=== PATIENT | male | born 1980 ===

== ENCOUNTER 2024-02-23 12:16 | Emergency (ER) | payer MEDICAID ==
[2024-02-23 13:01] LABS: BASOPHILS PERCENT AUTO 0.7 % (0.0-1.0); EOSINOPHILS PERCENT AUTO 0.7 % (1.0-3.0); HEMATOCRIT 43.4 % (40.0-54.0); HEMOGLOBIN 15.4 g/dL (14.0-18.0); LYMPHOCYTES PERCENT AUTO 23.9 % (20.5-50.1); MEAN CORPUSCULAR HEMOGLOBIN 28.9 pg (27.0-34.0); MEAN CORPUSCULAR HGB CONC 35.5 g/dL (33.0-35.0); MEAN CORPUSCULAR VOLUME 81.6 fL (80-100); MONOCYTES PERCENT AUTO 6.5 % (2-8); NEUTROPHILS PERCENT AUTO 68.2 % (42.2-75.2); PLATELET COUNT,PLT 137 10^3/uL (150-450); RED BLOOD CELL COUNT 5.32 10^6/uL (4.6-6.2); WHITE BLOOD CELL COUNT,WBC 4.2 10^3/uL (5.0-10.0)
[2024-02-23 13:02] LABS: APPEARANCE,URINE CLEAR (CLEAR); BILIRUBIN,URINE NEGATIVE (NEGATIVE); COLOR,URINE YELLOW (YELLOW); GLUCOSE,URINE 500 (NEGATIVE); KETONES,URINE 15 (NEGATIVE); LEUKOCYTE ESTERASE,URINE NEGATIVE (NEGATIVE); NITRITE,URINE NEGATIVE (NEGATIVE); OCCULT BLOOD,URINE TRACE-INTACT (NEGATIVE); PH,URINE 6.5 (5.0-9.0); PROTEIN,URINE 100 (NEGATIVE); UROBILINOGEN,URINE 0.2 mg/dL (0.2-1.0)
[2024-02-23 13:10] LABS: AMPHETAMINES,URINE NEGATIVE (NEGATIVE); BARBITURATES,URINE NEGATIVE (NEGATIVE); BENZODIAZEPINE,URINE NEGATIVE (NEGATIVE); MDMA (ECSTASY), URINE NEGATIVE (NEGATIVE); METHADONE,URINE NEGATIVE (NEGATIVE); METHAMPHETAMINES,URINE NEGATIVE (NEGATIVE); OPIATES,URINE NEGATIVE (NEGATIVE); OXYCODONE,URINE NEGATIVE (NEGATIVE); PHENCYCLIDINE,URINE NEGATIVE (NEGATIVE); TCA,URINE NEGATIVE (NEGATIVE)
[2024-02-23 13:14] LABS: BACTERIA,URINE OCCASIONAL /HPF (0-FEW/HPF); EPITHELIAL CELLS,URINE OCCASIONAL /HPF (NOT SEEN); MUCUS,URINE FEW /LPF (NOT SEEN); RBC,URINE 0-5 /HPF (0-5); WBC,URINE 0-5 /HPF (0-5/HPF)
[2024-02-23] MEDS: Pantoprazole 40 MG Vial IVPUSH ONE (13:14)
[2024-02-23] MEDS: LORazepam 2 MG/ML SDV IVPUSH ONE (13:15)
[2024-02-23] MEDS: Ondansetron 4 MG/2 ML SDV IVPUSH ONE (13:15)
[2024-02-23] MEDS: Sodium Chloride 0.9% 1,000 ML IV ONE (13:15)
[2024-02-23 13:17] LABS: INR 1.1 (0.9-1.2); PROTHROMBIN TIME 11.3 SEC (9.0-12.0)
[2024-02-23 13:22] LABS: ALANINE AMINOTRANSFERASE,ALT 50 U/L (16-63); ALBUMIN 3.8 g/dL (3.4-5.0); ALKALINE PHOSPHATASE 117 U/L (46-116); ANION GAP 22.8 mEq/L (7-13); BILIRUBIN TOTAL 0.5 mg/dL (0.2-1.0); BLOOD UREA NITROGEN,BUN 8 mg/dL (7-18); BUN/CREATININE RATIO 6.9 (No establ ref range); CALCIUM 8.1 mg/dL (8.5-10.1); CARBON DIOXIDE,CO2 20 mmol/L (21-32); CHLORIDE,CL 101 mmol/L (98-107); CREATININE 1.16 mg/dL (0.70-1.30); EST CRCL DRUG DOSING (CG) 99.15 mL/min; GLUCOSE RANDOM 303 mg/dL (70-99); LIPASE 27 U/L (16-77); MAGNESIUM 1.5 mg/dL (1.8-2.4); POTASSIUM,K 3.8 mmol/L (3.5-5.1); PROTEIN TOTAL,TP 7.5 g/dL (6.4-8.2); SODIUM,NA 140 mmol/L (136-145)
[2024-02-23] MEDS: Iopamidol 612 MG/ML 100 ML Bottle IVPUSH ONE (13:31)
[2024-02-23 13:35] LABS: ESTIMATED GFR 81 mL/min (>=60); ETHANOL BLOOD MEDICAL < 3 mg/dL (0)
[2024-02-23 13:36] LABS: ASPARTATE AMNIOTRANSFERASE,AST 21 U/L (15-37)
[2024-02-23] MEDS: MVI, Adult with Vitamin K 10 ML, Folic Acid 1 MG, Thiamine 100 MG in Lactated Ringers 1... IV ONE (13:45)
[2024-02-23] MEDS ORDERED: Glucagon,Human Recombinant 1 MG Vial IM PRN (14:02)
[2024-02-23] MEDS ORDERED: 50% Dextrose in Water 50 ML Syringe IVPUSH PRN (14:02)
[2024-02-23] MEDS: Insulin Regular, Human 100 Units/ML 3 ML Vial IV ONE (14:07)
[2024-02-23] MEDS: Sodium Chloride 0.9% 1,000 ML IV SCH (15:22)
== END 2024-02-23 16:31 | disposition home or self-care (01) ==
LOC: DL.ED 12:16
DX: K92.0 Hematemesis (principal); F10.130 Alcohol abuse with withdrawal, uncomplicated; I10 Essential (primary) hypertension; Z79.899 Other long term (current) drug therapy; Z79.84 Long term (current) use of oral hypoglycemic drugs; Y90.9 Presence of alcohol in blood, level not specified
CPT/HCPCS: 36415; 71045; 74177; 80053; 80305-QW; 80307; 81001; 82009; 82947; 83605; 83690; 83735; 85025; 85610; 96361; 96365; 96375; 99284; 99285-25; C9113; J1815-GY; J2060; J2405; J3411; J3490; J7030; J7120; Q9967

== ENCOUNTER 2024-03-06 14:34 | Emergency (ER) | payer MEDICAID ==
[2024-03-06] MEDS ORDERED: Sodium Chloride 0.9% 10 ML Syringe FLUSH PRN (14:39)
[2024-03-06] MEDS ORDERED: MVI, Adult with Vitamin K 10 ML, Thiamine 100 MG, Folic Acid 1 MG in Lactated Ringers 1... IV ONE (14:40)
[2024-03-06] MEDS ORDERED: cloNIDine 0.1 MG Tab PO ONE (14:40)
[2024-03-06] MEDS ORDERED: Metoprolol Succinate 50 MG Tab.ER PO ONE (14:41)
[2024-03-06] MEDS ORDERED: LORazepam 2 MG/ML SDV IVPUSH ONE (14:42)
[2024-03-06 15:06] LABS: BASOPHILS PERCENT AUTO 0.6 % (0.0-1.0); EOSINOPHILS PERCENT AUTO 0.4 % (1.0-3.0); HEMATOCRIT 45.4 % (40.0-54.0); HEMOGLOBIN 15.6 g/dL (14.0-18.0); LYMPHOCYTES PERCENT AUTO 19.1 % (20.5-50.1); MEAN CORPUSCULAR HEMOGLOBIN 29.2 pg (27.0-34.0); MEAN CORPUSCULAR HGB CONC 34.4 g/dL (33.0-35.0); MEAN CORPUSCULAR VOLUME 84.9 fL (80-100); MONOCYTES PERCENT AUTO 7.4 % (2-8); NEUTROPHILS PERCENT AUTO 72.5 % (42.2-75.2); PLATELET COUNT,PLT 153 10^3/uL (150-450); RED BLOOD CELL COUNT 5.35 10^6/uL (4.6-6.2); WHITE BLOOD CELL COUNT,WBC 8.1 10^3/uL (5.0-10.0)
[2024-03-06 15:22] LABS: PROTHROMBIN TIME 10.4 SEC (9.0-12.0); PTT,PARTIAL THROMBOPLSTIN TIME 26.3 SEC (22.0-34.0)
[2024-03-06 15:30] LABS: A/G RATIO 0.9; ALBUMIN 3.9 g/dL (3.4-5.0); ANION GAP 23.4 mEq/L (7-13); BILIRUBIN TOTAL 0.3 mg/dL (0.2-1.0); BUN/CREATININE RATIO 11.1 (No establ ref range); CALCIUM 8.4 mg/dL (8.5-10.1); CREATININE 0.9 mg/dL (0.70-1.30); EST CRCL DRUG DOSING (CG) 117.36 mL/min; MAGNESIUM 1.9 mg/dL (1.8-2.4); POTASSIUM,K 3.4 mmol/L (3.5-5.1); PROTEIN TOTAL,TP 8.4 g/dL (6.4-8.2); TSH ULTRASENSITIVE 0.67 uIU/mL (0.36-3.74)
== END 2024-03-06 16:30 | disposition left against medical advice (07) ==
LOC: DL.ED 14:34
DX: F10.10 Alcohol abuse, uncomplicated (principal); I10 Essential (primary) hypertension; Z79.899 Other long term (current) drug therapy; Y90.8 Blood alcohol level of 240 mg/100 ml or more
CPT/HCPCS: 36415; 80053; 80143; 80179; 80307; 83735; 84443; 85025; 85610; 85730; 99284; 99285

== ENCOUNTER 2024-03-09 17:34 | Emergency (ER) | payer MEDICAID ==
[2024-03-09 18:18] LABS: BASOPHILS PERCENT AUTO 0.7 % (0.0-1.0); EOSINOPHILS PERCENT AUTO 1.8 % (1.0-3.0); HEMATOCRIT 39.8 % (40.0-54.0); HEMOGLOBIN 13.7 g/dL (14.0-18.0); LYMPHOCYTES PERCENT AUTO 33.1 % (20.5-50.1); MEAN CORPUSCULAR HEMOGLOBIN 28.9 pg (27.0-34.0); MEAN CORPUSCULAR HGB CONC 34.4 g/dL (33.0-35.0); MONOCYTES PERCENT AUTO 9.9 % (2-8); NEUTROPHILS PERCENT AUTO 54.5 % (42.2-75.2); PLATELET COUNT,PLT 144 10^3/uL (150-450); RED BLOOD CELL COUNT 4.74 10^6/uL (4.6-6.2); WHITE BLOOD CELL COUNT,WBC 4.6 10^3/uL (5.0-10.0)
[2024-03-09 18:48] LABS: A/G RATIO 0.9; ALBUMIN 3.4 g/dL (3.4-5.0); ANION GAP 20.2 mEq/L (7-13); BILIRUBIN TOTAL 0.4 mg/dL (0.2-1.0); BUN/CREATININE RATIO 6.4 (No establ ref range); CALCIUM 8.6 mg/dL (8.5-10.1); CREATININE 0.94 mg/dL (0.70-1.30); EST CRCL DRUG DOSING (CG) 122.36 mL/min; MAGNESIUM 1.5 mg/dL (1.8-2.4); POTASSIUM,K 3.2 mmol/L (3.5-5.1); PROTEIN TOTAL,TP 7.4 g/dL (6.4-8.2); TSH ULTRASENSITIVE 1.19 uIU/mL (0.36-3.74)
[2024-03-09] MEDS: Sodium Chloride 0.9% 1,000 ML IV ONE (20:02)
[2024-03-09] MEDS: Magnesium Sulfate/Water 2 GM in Premix Bag 1 BAG IV ONE (20:02)
[2024-03-09] MEDS: Potassium Chloride 10 MEQ Tab.ER PO ONE (20:03)
[2024-03-09] MEDS: LORazepam 1 MG Tab PO ONE (20:03)
== END 2024-03-09 23:38 ==
LOC: DL.ED 17:34
DX: F32.A Depression, unspecified (principal); F10.129 Alcohol abuse with intoxication, unspecified; I10 Essential (primary) hypertension; E11.9 Type 2 diabetes mellitus without complications; F17.210 Nicotine dependence, cigarettes, uncomplicated; Z79.899 Other long term (current) drug therapy; Z79.84 Long term (current) use of oral hypoglycemic drugs; Y90.8 Blood alcohol level of 240 mg/100 ml or more
CPT/HCPCS: 36415; 80053; 80178; 80307; 83690; 83735; 84443; 85025; 96365; 96366; 99285; A9270; J3475; J7030